=== PATIENT | female | born 1970 | race Caucasian/White ===

== ENCOUNTER → 2019-03-06 | Outpatient (CLI) | payer OTHER | LOC: RAD 14:05 | DX: M79.89 Other specified soft tissue disorders (principal); M25.371 Other instability, right ankle ==

== ENCOUNTER → 2019-09-21 | Outpatient (CLI) | payer OTHER | LOC: RAD 14:26 | DX: S93.402A Sprain of unspecified ligament of left ankle, initial encounter (principal); M77.32 Calcaneal spur, left foot ==

== ENCOUNTER → 2020-02-02 | Outpatient (CLI) | payer OTHER | LOC: RAD 10:51 | DX: H93.A1 Pulsatile tinnitus, right ear (principal) ==

== ENCOUNTER → 2020-02-16 | Outpatient (CLI) | payer OTHER | LOC: RAD 15:45 | DX: R00.0 Tachycardia, unspecified (principal); Z15.89 Genetic susceptibility to other disease; E78.2 Mixed hyperlipidemia; H93.12 Tinnitus, left ear; R00.2 Palpitations ==

== ENCOUNTER → 2020-03-07 | Outpatient (CLI) | payer OTHER | LOC: AMSURD 11:12 | DX: R00.2 Palpitations (principal); R00.0 Tachycardia, unspecified; R01.2 Other cardiac sounds; Z15.89 Genetic susceptibility to other disease; R01.0 Benign and innocent cardiac murmurs ==

== ENCOUNTER → 2020-08-15 | Outpatient (CLI) | payer OTHER ==
[2020-05-19 02:20] VITALS: BP 137/82
[~2020-08-15] MED LIST: PROTONIX TR40 M1 PO
[2020-08-15 09:21] LABS: HEMATOCRIT 41.3 % (37.0-47.0); HEMOGLOBIN 13.8 g/dL (12.5-16.0); MEAN PLATELET VOLUME 10.3 fl (7.4-10.4); RED BLOOD COUNT 4.72 M/mm3 (4.10-5.30); RED CELL DISTRIBUTION WIDTH 12.8 % (11.5-14.5); WHITE BLOOD COUNT 7.4 K/mm3 (4.8-10.8)
[2020-08-15 09:41] LABS: ALBUMIN 4.1 g/dL (3.5-5.0)
[2020-08-15 09:42] LABS: POTASSIUM 4.1 mmol/L (3.5-5.1)
[2020-08-15 09:43] LABS: CALCIUM 9.1 mg/dL (8.3-10.5)
[2020-08-15 09:44] LABS: TOTAL PROTEIN 7.3 g/dL (6.4-8.3)
[2020-08-15 09:46] LABS: PROTHROMBIN TIME 9.8 SECONDS (9.0-12.0)
== END ==
LOC: LAB 09:08
PROVIDERS: Family Medicine
DX: Z01.810 Encounter for preprocedural cardiovascular examination (principal); Z01.811 Encounter for preprocedural respiratory examination; Z01.812 Encounter for preprocedural laboratory examination

== ENCOUNTER 2021-06-07 19:22 | Emergency (ER) | payer OTHER ==
[~2021-06-07] VITALS: Ht 160 cm; Wt 67.7 kg
[2021-06-07] MEDS ORDERED: PROTONIX20 M1 PO (19:56)
[2021-06-07] MEDS ORDERED: ULTRAM50 M1 PO (19:56)
[2021-06-07 20:45] LABS: BASO # 0.04 (0.02-0.10); EOS # 0.09 (0.04-0.40); EOS % 0.9 % (1.0-5.0); HEMATOCRIT 39.3 % (37.0-47.0); HEMOGLOBIN 13.2 g/dL (12.5-16.0); LYMPH# 2.16 (1.50-4.00); MEAN CELL VOLUME 87 fl (78-100); MEAN CORPUSCULAR HEMOGLOBIN 29 pg (27-31); MEAN CORPUSCULAR HGB CONC 34 g/dL (33-37); MEAN PLATELET VOLUME 10.3 fl (7.4-10.4); NEU # 7.49 (1.40-6.50); PLATELET COUNT 249 K/mm3 (130-400); RED BLOOD COUNT 4.52 M/mm3 (4.10-5.30); RED CELL DISTRIBUTION WIDTH 12.9 % (11.5-14.5); WHITE BLOOD COUNT 10.3 K/mm3 (4.8-10.8)
[2021-06-07 20:48] LABS: ALBUMIN 3.8 g/dL (3.5-5.0)
[2021-06-07 20:49] LABS: POTASSIUM 3.8 mmol/L (3.5-5.1)
[2021-06-07 20:50] LABS: CALCIUM 9.5 mg/dL (8.3-10.5)
[2021-06-07 20:51] LABS: TOTAL PROTEIN 6.4 g/dL (6.4-8.3)
[2021-06-07 20:53] LABS: TOTAL BILIRUBIN 0.7 mg/dL (0.2-1.2)
[2021-06-07 22:26] VITALS: BP 130/86
== END 2021-06-07 22:26 | disposition home or self-care (01) ==
LOC: ED 19:22
PROVIDERS: Family Medicine
DX: G89.29 Other chronic pain (principal); R10.2 Pelvic and perineal pain; R53.83 Other fatigue; M75.21 Bicipital tendinitis, right shoulder

== ENCOUNTER → 2021-09-11 | Outpatient (CLI) | payer OTHER ==
[~2021-09-11] MED LIST changes: +PROTONIX20 M1 PO; +ULTRAM50 M1 PO
== END ==
LOC: RAD 12:45
DX: M43.17 Spondylolisthesis, lumbosacral region (principal)

== ENCOUNTER → 2021-09-17 | Outpatient (CLI) | payer OTHER | LOC: RAD 12:27 | DX: M53.3 Sacrococcygeal disorders, not elsewhere classified (principal) ==

== ENCOUNTER → 2021-09-30 | Outpatient (CLI) | payer OTHER | LOC: RAD 10:00 | DX: S32 Fracture of lumbar spine and pelvis (principal); M53.3 Sacrococcygeal disorders, not elsewhere classified ==

== ENCOUNTER 2021-10-21 22:25 | Emergency (ER) | payer OTHER ==
[~2021-10-21] VITALS: Ht 160 cm; Wt 66.4 kg
[2021-10-21] MEDS ORDERED: METHOCARBAMOL500 M1 PO (23:03)
[2021-10-21 23:35] LABS: ALBUMIN 3.7 g/dL (3.5-5.0); HEMATOCRIT 37.7 % (37.0-47.0); HEMOGLOBIN 12.8 g/dL (12.5-16.0); LYMPH# 0.73 K/mm3 (1.50-4.00); MEAN CELL VOLUME 86 fl (78-100); MEAN CORPUSCULAR HEMOGLOBIN 29 pg (27-31); MEAN CORPUSCULAR HGB CONC 34 g/dL (33-37); MEAN PLATELET VOLUME 11.2 fl (7.4-10.4); MONO # 0.18 K/mm3 (0.20-0.80); NEU # 2.08 K/mm3 (1.40-6.50); PLATELET COUNT 113 K/mm3 (130-400); RED BLOOD COUNT 4.37 M/mm3 (4.10-5.30); RED CELL DISTRIBUTION WIDTH 12.3 % (11.5-14.5)
[2021-10-21 23:36] LABS: POTASSIUM 3.9 mmol/L (3.5-5.1)
[2021-10-21 23:37] LABS: CALCIUM 8.7 mg/dL (8.3-10.5)
[2021-10-21 23:38] LABS: TOTAL PROTEIN 6.5 g/dL (6.4-8.3)
[2021-10-21 23:40] LABS: TOTAL BILIRUBIN 0.5 mg/dL (0.2-1.2)
[2021-10-22] MEDS ORDERED: MORGIDOX 2X100100 MG PO (00:25)
[2021-10-22 01:32] VITALS: BP 115/68
== END 2021-10-22 01:32 | disposition home or self-care (01) ==
LOC: ED 22:25
PROVIDERS: Physician Assistant
DX: U07.1 COVID-19 (principal); G89.29 Other chronic pain; R10.2 Pelvic and perineal pain; Z91.040 Latex allergy status; Z79.891 Long term (current) use of opiate analgesic
CPT/HCPCS: J2405; J7030